=== PATIENT | male | born 1940 | race Two or more races ===

== ENCOUNTER 2017-06-12 10:11 | Inpatient (IN) | payer MEDICARE ==
[~2017-06-12] VITALS: Ht 170.2 cm; Wt 44.9 kg
[2017-06-12] MEDS ORDERED: GLIPIZIDE2.5 M1 PO (10:51)
[2017-06-12] MEDS ORDERED: RESTORIL30 MG PO (10:53)
[2017-06-12] MEDS ORDERED: RELION NOVOL100 U/M1 SQ (10:53)
[2017-06-12] MEDS ORDERED: PROTONIX40 MG PO (10:54)
[2017-06-12] MEDS ORDERED: APAP500 MG PO (10:54)
[2017-06-12] MEDS ORDERED: VENTOLIN H0.09 MG/A1 INH (10:55)
[2017-06-12] MEDS ORDERED: IPRATROPIUM BROM3 M2 IH (10:56)
[2017-06-12] MEDS ORDERED: COR6 PO (10:56)
[2017-06-12] MEDS ORDERED: LACTULOSE10 GM/152 PO (10:59)
[2017-06-12] MEDS ORDERED: MIRALAX17 GM/Dose PO (11:00)
[2017-06-12] MEDS ORDERED: AMLODIPINE BES2.5 M1 PO (11:01)
[2017-06-12] MEDS ORDERED: LIPI20 PO (11:01)
[2017-06-12] MEDS ORDERED: ASPIR 8181 MG PO (11:01)
[2017-06-12] MEDS ORDERED: FLONS (11:02)
[2017-06-12 11:07] LABS: PLATELET COUNT 154 x10^3mcL (130-400)
[2017-06-12 11:20] LABS: RED CELL DISTRIBUTION WIDTH 18.5 % (11.5-14.5)
[2017-06-12 11:24] LABS: UA SPECIFIC GRAVITY 1.015 (1.005-1.035); microscopic required? YES; urine erythrocyte 3+ (NEGATIVE)
[2017-06-12 11:28] LABS: CALCIUM 8.7 mg/dL (8.5-10.1); CARBON DIOXIDE 28.8 mmol/L (21-32); CHLORIDE SERUM 101 mmol/L (98-107); CREATININE SERUM 0.9 mg/dL (0.7-1.3); GLUCOSE SERUM 199 mg/dL (74-106); POTASSIUM SERUM 4.2 mmol/L (3.5-5.1); SODIUM SERUM 137 mmol/L (136-145)
[2017-06-12 11:40] LABS: ALBUMIN 2.6 g/dL (3.4-5.0); ALKALINE PHOSPHATASE 79 U/L (46-116); ALT/SGPT 10 U/L (16-63); AST/SGOT 13 U/L (15-37); BILIRUBIN TOTAL 0.3 mg/dL (0.20-1.00)
[2017-06-12 12:10] LABS: rbc morphology (normal/abnorm) ABNORMAL (NORMAL)
[2017-06-12 12:11] LABS: target cell (codocyte) 1+
[2017-06-12] MEDS ORDERED: TEMAZEPAM30 MG (12:45)
[2017-06-12 13:28] VITALS: BP 179/86
[2017-06-12 13:35] LABS: MAGNESIUM 1.9 mg/dL (1.8-2.4); PHOSPHOROUS 3.6 mg/dL (2.5-4.9)
[2017-06-12 13:36] LABS: CHOLESTEROL/HDL RATIO 2.6
[2017-06-12 13:39] VITALS: BP 110/59
[2017-06-12 13:42] LABS: FREE T4 1.33 ng/dL (0.76-1.46); FREE THYROXINE INDEX 3.2 ug/dL (1.4-4.5); T3 TOTAL 0.73 ng/mL; T4(THYROXINE) 8.8 ug/dL (4.7-13.3)
[2017-06-12 17:45] VITALS: BP 132/71
[2017-06-12 21:36] VITALS: BP 143/76
[2017-06-13 05:51] LABS: PLATELET COUNT 148 x10^3mcL (130-400)
[2017-06-13 05:55] VITALS: BP 147/66
[2017-06-13 06:21] LABS: CALCIUM 8.4 mg/dL (8.5-10.1); CARBON DIOXIDE 25.4 mmol/L (21-32); CHLORIDE SERUM 103 mmol/L (98-107); GLUCOSE SERUM 237 mg/dL (74-106); POTASSIUM SERUM 3.9 mmol/L (3.5-5.1); SODIUM SERUM 137 mmol/L (136-145)
[2017-06-13 06:51] LABS: RED CELL DISTRIBUTION WIDTH 19.3 % (11.5-14.5)
[2017-06-13 10:12] VITALS: BP 146/64
[2017-06-13 11:49] LABS: BAND NEUTROPHIL 30 % (0-10); BASOPHIL 0 % (0-2); MONOCYTE 5 % (0-7); SEGMENTED NEUTROPHILS 57 % (37-75)
[2017-06-13 11:50] LABS: rbc morphology (normal/abnorm) ABNORMAL (NORMAL)
[2017-06-13 11:53] LABS: ovalocyte/elliptocyte 1+; schistocyte (helmet cell) 1+; target cell (codocyte) 1+
[2017-06-13 13:22] VITALS: BP 159/77
[2017-06-13 16:12] VITALS: BP 157/64
[2017-06-13 21:27] VITALS: BP 158/59
[2017-06-13 22:08] VITALS: BP 146/66
[2017-06-14 06:05] VITALS: BP 149/56
[2017-06-14 06:17] LABS: PLATELET COUNT 140 x10^3mcL (130-400)
[2017-06-14 07:00] LABS: RED CELL DISTRIBUTION WIDTH 19.4 % (11.5-14.5)
[2017-06-14 07:02] LABS: CALCIUM 8.8 mg/dL (8.5-10.1); CARBON DIOXIDE 25.7 mmol/L (21-32); CHLORIDE SERUM 102 mmol/L (98-107); CREATININE SERUM 0.8 mg/dL (0.7-1.3); GLUCOSE SERUM 240 mg/dL (74-106); POTASSIUM SERUM 3.3 mmol/L (3.5-5.1); SODIUM SERUM 140 mmol/L (136-145)
[2017-06-14 07:40] LABS: BAND NEUTROPHIL 1 % (0-10); MONOCYTE 4 % (0-7); SEGMENTED NEUTROPHILS 90 % (37-75); rbc morphology (normal/abnorm) ABNORMAL (NORMAL)
[2017-06-14 07:41] LABS: ovalocyte/elliptocyte 1+; schistocyte (helmet cell) 1+; target cell (codocyte) 1+
[2017-06-14 09:26] VITALS: BP 157/54
[2017-06-14 11:59] VITALS: BP 154/58
[2017-06-14 12:31] VITALS: BP 154/58
[2017-06-14 17:09] VITALS: BP 137/89
[2017-06-14] MEDS ORDERED: CEFTRIAXONE AMER1 GM IM (17:43)
[2017-06-15 09:14] VITALS: Ht 170.2 cm; Wt 44.9 kg
== END 2017-06-14 19:19 | disposition hospice, home (50) | DRG 177 ==
LOC: ED 10:11 → DU 12:17
PROVIDERS: Emergency Medicine; Family Medicine
DX: J69.0 Pneumonitis due to inhalation of food and vomit (principal); J96.01 Acute respiratory failure with hypoxia; N17.0 Acute kidney failure with tubular necrosis; E43 Unspecified severe protein-calorie malnutrition; J44.1 Chronic obstructive pulmonary disease with (acute) exacerbation; N39.0 Urinary tract infection, site not specified; Z68.1 Body mass index [BMI] 19.9 or less, adult; R13.10 Dysphagia, unspecified; K21.9 Gastro-esophageal reflux disease without esophagitis; B96.20 Unspecified Escherichia coli [E. coli] as the cause of diseases classified elsewhere; R80.9 Proteinuria, unspecified; E11.65 Type 2 diabetes mellitus with hyperglycemia; D63.8 Anemia in other chronic diseases classified elsewhere; I10 Essential (primary) hypertension; F03.90 Unspecified dementia, unspecified severity, without behavioral disturbance, psychotic disturbance, mood disturbance, and anxiety; Z16.12 Extended spectrum beta lactamase (ESBL) resistance; Z66 Do not resuscitate; Z86.73 Personal history of transient ischemic attack (TIA), and cerebral infarction without residual deficits; Z79.4 Long term (current) use of insulin; Z79.82 Long term (current) use of aspirin
CPT/HCPCS: 36600; 82962; 83880; 84439; 92610; J0696; J1956; J2543; J2920; J2930; J3010; J3490; J7030; J7620; Q0092